=== PATIENT | male | born 1975 | race Caucasian/White ===

== ENCOUNTER 2022-12-20 13:31 | Outpatient (AMB) | payer BC, SELFPAY ==
--- NOTE | 2022-12-20 14:08 | HO.SPINEOV ---
Intake Intake Visit Reasons: MONEY MANAGER consultation Intake Note: Mr. Nunez is here today c/o low back pain. radiating down leg. MRI done @ [facility]/brought disc. Engineer Sergeant Required: No Assessment & Plan Assessment & Plan (1) Lumbar disc herniation with radiculopathy: Code(s): M51.16 - Intervertebral disc disorders with radiculopathy, lumbar region Plan Dear colleague Thank you for referring Alo Nunez to the office today with a chief complaint of right lumbar radiculopathy. HPI: This 47-year-old male developed severe radiating pain down his right leg 2 months ago. He went to the emergency room twice. He took steroids and is still using anti-inflammatory drugs. In addition he tried heat cold pads, chiropractor and home exercises. The pain is not improving. The pain is 8/10. The pain radiates from his buttock down to his posterior thigh to his calf and to the outside of his right foot into the small toe. He had similar episodes in the past but then the pain would stay in his posterior thigh. PMH: Right L4-5 decompression at the age of 20, hypertension, sleep apnea Medications: Lisinopril Allergies: NKDA Social history: . Works in [employer] ill Physical Exam: Pleasant male in obvious agony. Straight leg raise is positive on the right side with radiating pain down his right leg. Ankle reflexes absent on the right side. There is hypoesthesia the lateral part of his right foot. Motor exam is intact. Radiological Studies: MRI done at [facility] shows a small L5-S1 disc herniation compressing the right S1 nerve root an enlargement of the S1 nerve root. Impression/Plan: This patient is suffering from a right S1 radiculopathy due to disc herniation that is not responding to conservative treatments. I therefore him a lumbar microdiskectomy L5-S1, right side. I described procedure and complications and he wants to proceed. He is scheduled for February 12. Thank you for allowing me to participate in your patients care. total time spent was 50 minutes in counseling ,coordination of plan, personal review of imaging, surgical decision making and subsequent plan Michael Rodriguez MD, PhD Sp[facility] Fellowship Trained Neurosurgeon Director, [facility] Coding Level of Care Code New Pt Level 4 (83061) Diagnoses Lumbar disc herniation with radiculopathy M51.16
== END 2022-12-20 14:50 | disposition home or self-care (01) ==
PROVIDERS: PCP Internal Medicine; Visit Provider Neurological Surgery
DX: M51.16 Intervertebral disc disorders with radiculopathy, lumbar region (principal)
CPT/HCPCS: 99204

== ENCOUNTER → 2022-12-20 13:31 | Outpatient (BNVA) | payer BC, SELFPAY | PROVIDERS: PCP Internal Medicine; Visit Provider Neurological Surgery ==

== ENCOUNTER 2023-03-15 07:14 | Day surgery (SDC) | payer BC, SELFPAY ==
[2023-02-28 13:17] VITALS: BMI 29.3
--- NOTE | 2023-03-01 13:34 | P.CONAN_ITS ---
Documented by User: Carmen Melchor NP 03/08/23 15:21 HPI - Anesthesia Eval Consult details Narrative: 47yo M for Right L5-S1 Microlumbar discectomy, 03/15/23 PCP cleared Phone PAT assessment PMFSH Active Problems Active Problems: All Active Problems (Updated 02/28/23 @ 13:17 by Sarah Peraza RN) Lumbar disc herniation with radiculopathy (Acute) Past Medical History Medical History Family history of anesthesia complication Post-operative nausea and vomiting PVCs (premature ventricular contractions) GERD (gastroesophageal reflux disease) Elevated cholesterol Sleep apnea HTN (hypertension) Family History Family history of problems with anesthesia: Yes (Mom - PONV) Surgical History Surgical History History of esophagogastroduodenoscopy (EGD) H/O colonoscopy Hx of decompressive lumbar laminectomy History of Problems with Anesthesia: Yes (PONV) Social History Social History Are you a primary rn progressive care unit to a significant other at home: No Do you presently have visiting nurse or other home services: No Patient Tobacco Use Status: Never used Tobacco Use of substances other than those prescribed or required for medical reasons: No Have you been hit, kicked, punched, or otherwise hurt by someone within the past year? If so, by whom?: No Are you DNR?: No Advance Directives: No Advance Directives Information Provided: Yes Advance Directives on File: No Recently lost weight without trying: No Eating poorly because of decreased appetite: No Nutrition Risks: No Nutritional Risk Poor oral hygiene: No Meds Allergies Allergy/AdvReac Type Severity Reaction Status Date / Time hydrochlorothiazide Allergy Intermediate Dizziness Verified 03/15/23 07:18 Home Medications Medication Instructions Recorded Confirmed Last Taken Type cyclobenzaprine 10 mg tablet 10 mg PO BID PRN Muscle Spasm 02/28/23 02/28/23 Unknown History ibuprofen 800 mg tablet 800 mg PO TID 02/28/23 02/28/23 02/22/23 History lisinopril 5 mg tablet 5 mg PO BEDTIME 02/28/23 02/28/23 Unknown History sildenafil 100 mg tablet 100 mg PO DAILY PRN Erectile 02/28/23 02/28/23 Unknown History Dysfunction Exam Height,Weight and Vital Signs: Height 5 ft 7 in Weight 84.822 kg Pertinent Lab Results Pertinent Lab Results: BMP 02/27/23 WNL except CREAT = 1.27 Narrative Narrative: EKG 02/2023 NSR Probable LAE Assessment and Plan Assessment Anesthesia Assessment: Chart Reviewed Final Anesthetic Review Family History of Problems with Anesthesia: Yes (Mom - PONV) History of Problems with Anesthesia: Yes (PONV) Documented by User: Traci Gomez MD 03/15/23 08:39 PMFSH Active Problems Active Problems: All Active Problems (Updated 03/15/23 @ 07:36 by Traci Gomez MD) Lumbar disc herniation with radiculopathy (Acute) Continuously clearing throat. States throat dry. Denies recent sore throat,cough,cold,fever,malaise Denies recent use of sildenafil H/o PONV, motion sickness- Scop patch in place Past Medical History Medical History Family history of anesthesia complication Post-operative nausea and vomiting PVCs (premature ventricular contractions) GERD (gastroesophageal reflux disease) Elevated cholesterol Sleep apnea HTN (hypertension) Surgical History Surgical History History of esophagogastroduodenoscopy (EGD) H/O colonoscopy Hx of decompressive lumbar laminectomy Social History Social History Are you a primary rn progressive care unit to a significant other at home: No Do you presently have visiting nurse or other home services: No Patient Tobacco Use Status: Never used Tobacco Use of substances other than those prescribed or required for medical reasons: No Have you been hit, kicked, punched, or otherwise hurt by someone within the past year? If so, by whom?: No Are you DNR?: No Advance Directives: No Advance Directives Information Provided: Yes Advance Directives on File: No Recently lost weight without trying: No Eating poorly because of decreased appetite: No Nutrition Risks: No Nutritional Risk Poor oral hygiene: No Meds Allergies Allergy/AdvReac Type Severity Reaction Status Date / Time hydrochlorothiazide Allergy Intermediate Dizziness Verified 03/15/23 07:18 Home Medications Medication Instructions Recorded Confirmed Last Taken Type cyclobenzaprine 10 mg tablet 10 mg PO BID PRN Muscle Spasm 02/28/23 02/28/23 Unknown History ibuprofen 800 mg tablet 800 mg PO TID 02/28/23 02/28/23 02/22/23 History lisinopril 5 mg tablet 5 mg PO BEDTIME 02/28/23 02/28/23 Unknown History sildenafil 100 mg tablet 100 mg PO DAILY PRN Erectile 02/28/23 02/28/23 Unknown History Dysfunction Exam Height,Weight and Vital Signs: Height 5 ft 7 in Weight 84.822 kg Vital Signs Temp Pulse Resp BP Pulse Ox O2 Del Method 03/15/23 08:31 90 151/91 H 03/15/23 08:00 97.9 F 92 18 158/108 H 97 Room Air Airway Mallampati Class: II TM Dist: >3cm Neck ROM: Full (Sometimes with tightness left side of neck. Not today. No UE symptoms) Loose/Missing/Broken Teeth: No (Denies broken, loose, missing teeth) Heart: RRR Lungs: CTAB Assessment and Plan Assessment Anesthesia Assessment: Anesthesia Plan Discussed Final Anesthetic Review NPO: Yes ASA Class: III Final Preanesthetic Review: No Changes in Pt Med Stat, Meds/Allgs Chart Reviewed, Consent Obtained/Reviewed and Anes Risks/Benef Reviewed Patient Risk: Intermediate Procedure Risk: Intermediate Assessment/Block/Sedation in SS: Assess/Block/Sedation-SS Anesthetic Plan Anesthetic Plan: GA Disposition: Standard PACU
[2023-03-15] VITALS (22 sets, daily range): BP systolic 120–158; BP diastolic 72–108; PULSE 71–98; RESP 10–18; TEMP 36.1–36.6; O2SAT 95–98; BMI 28.8
--- NOTE | ~2023-03-15 | FL_ITS ---
EXAMINATION: Intraoperative fluoroscopy CLINICAL INFORMATION: L5/S1 microlumbar discectomy COMPARISON: None. TECHNIQUE: Intraoperative fluoroscopy was provided for use by Dr. Rodriguez. A total of 1 image was saved to PACS. A radiologist was not present during imaging. Today's dictation is only for administrative purposes to document intraoperative fluoroscopic usage. TOTAL FLUOROSCOPIC TIME: 0.0 minutes DAP: 2.83 mGy-cm FL/FL guidance in OR FINDINGS~\^^ Intraoperative fluoroscopy provided for use by Dr. Rodriguez. Please see operative note for detailed findings.
--- NOTE | 2023-03-15 07:04 | MHC.SHP ---
Pre-Procedural Eval Section A Date of Service: 03/15/23 The patient is an INPATIENT: No Changes since office visit: No Cold of Flu in the past 2 weeks, No New Medical Problems, No Changes in Medication and No Patient answered all questions The History & Physical has been completed within 30 days and I have reviewed it.: No Section B Chief Complaint: Intervertebral disc disorders with radiculopathy, Allergies: Allergies Allergy/AdvReac Type Severity Reaction Status Date / Time hydrochlorothiazide Allergy Intermediate Dizziness Verified 02/28/23 11:04 Review of Systems Sugical H&P ROS: Negative: Constitution, Cardiovascular, Respiratory, Neurological, Psychiatric, Hem-Onc, Allergic/Immunologic, Gastrointestinal, Genitourinary, Musculoskeletal, Integumentary, Endocrine and Eyes/Ears/Nose/Throat Exam Surgical H&P Exam: Not Evaluated: HEENT, Not Evaluated: Heart, Not Evaluated: Lungs, Not Evaluated: Extremities, Not Evaluated: Abdomen, Not Evaluated: Skin and Not Evaluated: Neurological Plan Diagnosis/Plan: Unchanged L5-S1 microdiskectomy Time Spent With Patient Time: Total time managing care of this patient today __5__ minutes.
[2023-03-15] MEDS: Lactated Ringers 1,000 ML 100 ML IVCONT (07:20)
[2023-03-15] MEDS: Scopolamine 1.5 MG PATCH.TD.3 TRANSDERMA (07:47)
[2023-03-15] MEDS: methocarbamoL 750 MG TABLET PO (08:39)
[2023-03-15] MEDS: Gabapentin 300 MG CAPSULE PO (08:39)
--- NOTE | 2023-03-15 10:41 | W.PM.OPN ---
Operative Note Operative Note Date of Service: 03/15/23 Narrative: Preoperative diagnosis: S1 radiculopathy due to disc herniation, right side Postoperative diagnosis: Same Procedure: Right L5-S1 lumbar microdiskectomy with microscope Surgeon: Michael Rodriguez MD, PhD Diesel Scoop Operator: marlena Saucedo This 47-year-old male suffering from a right S1 radiculopathy. An MRI of the lumbar spine shows a small disc herniation compressing the S1 nerve root medially. The patient was offered a lumbar microdiskectomy to decompress the nerve root. The procedure complications were explained. The patient was consented. The patient was brought to the operating room and endotracheally intubated. The patient was turned in a prone position on the Samuel frame. Prepping and draping was done followed by time-out. A mid lumbar incision was made followed by release of the paravertebral muscles on the right side to expose the L5-S1 interspace. An intraoperative x-rays obtained to confirm the correct level. The microscope was brought in. A right L5 laminotomy was done followed by opening of the flavum ligament. The S1 nerve root was identified and retracted medially to expose the L5-S1 disc space. I could palpate a small disc herniation medial from the S1 nerve root, which I carefully removed with a pituitary. The disc space was inspected and any residual disc fragments were removed. This resulted in an excellent decompression of the S1 nerve root. Hemostasis was done. The microscope was removed. Marcaine was injected intramuscularly.The incision was closed in two layers. Steri-Strips used to approximate seizure. An op-site were taken there was used to cover the incision. All sponge and needle counts were correct. Patient was extubated and transported in stable condition to recovery room. this procedure was done with the aid of a physician retail assistant manager who performed the initial exposure until the microscope was brought in and performed the closure of the incision. Anesthesia: General Blood loss: 10 mL Complications: None Specimen: None Surgical time: Disposition: Discharge home
--- NOTE | 2023-03-15 10:54 | PM.DS ---
DS: Providers Provider Date of Service: 03/15/23 Date of discharge: 03/15/23 Primary care physician: Alejandro Rose MD Admitting clinician: Michael Rodriguez DS: Diagnosis Discharge Diagnosis (1) Lumbar disc herniation with radiculopathy: Status: Acute DS: Summary Time Attestation Discharge coordination time: Less than 30 minutes Quality: Safe Use of Opioids Does Pt have an Active Cancer Diagnosis on the Problem List?: No Quality: Stroke Does the patient have a stroke diagnosis?: No Physical Exam Vital Signs: Vital Signs: Last Vital Signs Temp 97.9 F 03/15/23 08:00 Pulse 90 03/15/23 08:31 Resp 18 03/15/23 08:00 BP 151/91 H 03/15/23 08:31 Pulse Ox 97 03/15/23 08:00 O2 Del Method Room Air 03/15/23 08:00 BMI result Body Mass Index 28.8 Discharge Plan Discharge Patient Disposition: Home, Self-Care Referrals: Alejandro Rose MD [Primary Care Provider] - 1 Week Discharge Medications: New docusate sodium [Colace] 100 mg capsule 100 mg PO BID Qty: 20 0RF oxycodone 5 mg tablet 5 mg PO Q4H PRN (Reason: pain) Qty: 30 0RF Rx Instructions: Partial Fill upon patient request. Continued cyclobenzaprine 10 mg tablet 10 mg PO BID PRN (Reason: Muscle Spasm) ibuprofen 800 mg tablet 800 mg PO TID lisinopril 5 mg tablet 5 mg PO BEDTIME sildenafil 100 mg Tablet 100 mg PO DAILY PRN (Reason: Erectile Dysfunction) Rx Instructions: administer 30 minutes to 4 hours before activity Discharge Orders: Discharge Order (Routine); Ordered 03/15/23 Ordered By: Yonatan Birch Diet: Advance to usual diet Activity on Discharge: As tolerated Activity Restrictions/Additional Instructions: After your spinal surgery we ask you to observe the following restrictions/guidelines: Activity: It is normal to feel some discomfort as you increase your activity, but that will improve with time. We ask you avoid heavy lifting or acitivities that cause pain. As a general rule, 8lbs is a safe limit for lifting right after surgery. Walk as much as you feel comfortable but not to exhaustion. You will feel extra tired the first few days after surgery. Stay well hydrated. It is OK to walk up and down stairs You may return to driving when you are off narcotics (such as vicodin, oxycodone, dilaudid, etc), and you are back to normal functional capacity. If you have any concerns please check with office before driving. Return to work is specific to each patient and each surgery, so please speak with your doctor/PA at first follow up. Please bring paperwork such as FMLA at that time if you need it filled out. Medications: For optimum pain control, it is best to start with a combination of 500 mg of Tylenol every 4 hours with 600 mg of Motrin every 8 hours, and use narcotics as needed in between for breakthrough pain. We will give you a short supply of narcotics after surgery (usually one weeks worth). If you need more please call the office but do not use more than prescribed. You will need to give our office 48 hours notice if you need narcotics refilled and we do not fill narcotics on weekends or evenings. If you are on a narcotic, it is a good idea to take a stool softener such as colace or senna to avoid constipation If you take blood thinner such as aspirin, Plavix, Coumadin, Effient, Eliquis etc for conditions such as Afib, DVT, Pulmonary embolus, coronary disease, stents etc please speak with your surgeon about specific details as to when you can resume these medications. You can resume NSAIDs on post op day 1 (eg: Motrin, Naproxen, etc). Follow up: Please call the office, , after surgery to arrange a 3 week follow up for wound check. Wound Care: You may remove your dressing on the first day after surgery. ?You may ?leave open to air. Please do not remove the steri strips underneath. they will fall off on their own in one week. IT IS NORMAL FOR THE WOUND TO OOZE OR BE BLOODY FOR A FEW DAYS AFTER SURGERY. ?IF THIS HAPPENS JUST PLACE NEW DRESSING OVER IT TO AVOID STAINING CLOTHES. You may shower on post op day # 1 We ask that you do not let the water soak the wound. If it does get wet, just towel dry lightly. Please do not scrub your incision or place any type of chemical/ointment on the wound. No tub baths, pools or jacuzzis for one month. If you have any leaking or redness from your wound, or fevers, please call office
[2023-03-15] MEDS: oxyCODONE HCl Immed Release 5 MG TABLET PO (12:04)
[2023-03-15] MEDS: fentaNYL citrate/PF 100 MCG/2 ML VIAL 25 MCG IVPUSH (12:05)
== END 2023-03-15 15:27 | disposition home or self-care (01) ==
PROVIDERS: PCP Internal Medicine; Visit Provider Neurological Surgery
PROC: (CPT 63030; principal; 2023-03-15 09:20)
DX: M51.16 Intervertebral disc disorders with radiculopathy, lumbar region (principal); I10 Essential (primary) hypertension; G47.33 Obstructive sleep apnea (adult) (pediatric); Z79.1 Long term (current) use of non-steroidal anti-inflammatories (NSAID); Z99.89 Dependence on other enabling machines and devices; Z79.899 Other long term (current) drug therapy; Z88.8 Allergy status to other drugs, medicaments and biological substances
CPT/HCPCS: 63030; J0131; J0690; J1100; J1885; J2250; J2371; J2405; J2550; J2704; J3010

== ENCOUNTER → 2023-03-15 07:14 | Outpatient (BNV) | payer BC, SELFPAY | PROVIDERS: PCP Internal Medicine; Visit Provider Neurological Surgery | DX: M51.16 Intervertebral disc disorders with radiculopathy, lumbar region (principal) | CPT/HCPCS: 63030; 99499 ==

== ENCOUNTER 2023-04-06 08:58 | Outpatient (AMB) | payer BC, SELFPAY ==
--- NOTE | 2023-04-06 09:00 | A.OFFVIS_ITS ---
Intake Intake Visit Reasons: 1st post-op visit. Intake Note: Pt here for 1st post op Scale Reclamation Tender Required: No Allergies hydrochlorothiazide Allergy (Intermediate, Verified 03/15/23 07:18) Dizziness PFSH Medical History Family history of anesthesia complication Post-operative nausea and vomiting PVCs (premature ventricular contractions) GERD (gastroesophageal reflux disease) Elevated cholesterol Sleep apnea HTN (hypertension) Surgical History History of esophagogastroduodenoscopy (EGD) H/O colonoscopy Hx of decompressive lumbar laminectomy Social History Are you a primary customer care assistant to a significant other at home: No Do you presently have visiting nurse or other home services: No Patient Tobacco Use Status: Never used Tobacco Assessment & Plan Assessment & Plan (1) Lumbar disc herniation with radiculopathy: Code(s): M51.16 - Intervertebral disc disorders with radiculopathy, lumbar region Plan Procedure: L5-S1 right side microdiskectomy Alo comes in today for his 1st postoperative visit. He reports he is satisfied with the surgery and is already beginning to have symptom resolution. He states that he still has some pulling sensation is right-sided posterior calf & lateral right foot, but overall he feels as though his symptoms are slowly improving. He is able to accomplish all of his ADLs around the home, and is reportedly walking 1-2 miles per day. We discussed postoperative healing course, and I encouraged him to continue remaining as active as possible, without engaging in heavy weight-bearing. No sensational deficits. Patient is able to ambulate well, rises from a seated position without difficulty. Incision sites are closed, well healed, with no signs of drainage. We will follow-up with the patient in 6 weeks for his 2nd postoperative visit. Balta Rodriguez MD,PhD [facility] Coding Level of Care Code Global (32328) Diagnoses Lumbar disc herniation with radiculopathy M51.16
== END 2023-04-06 09:23 | disposition home or self-care (01) ==
PROVIDERS: PCP Internal Medicine; Visit Provider Physician Assistant
DX: M51.16 Intervertebral disc disorders with radiculopathy, lumbar region (principal)
CPT/HCPCS: 99024

== ENCOUNTER → 2023-04-06 08:58 | Outpatient (BNVA) | payer BC, SELFPAY | PROVIDERS: PCP Internal Medicine; Visit Provider Physician Assistant ==

== ENCOUNTER 2023-05-18 08:47 | Outpatient (AMB) | payer BC, SELFPAY ==
--- NOTE | 2023-05-18 08:54 | HO.SPINEOV ---
Intake Intake Visit Reasons: 2nd post op Intake Note: Mr. Carson is here today for 2nd post op. Pie Filling Mixer Required: No Allergies hydrochlorothiazide Allergy (Intermediate, Verified 03/15/23 07:18) Dizziness Assessment & Plan Assessment & Plan (1) H/O lumbosacral spine surgery: Code(s): Z98.890 - Other specified postprocedural states Plan Alo is a pleasant 47-year-old male who comes in today for his 2nd postoperative visit after L4-5 microdiskectomy. He continues to heal well, and reports only the occasional twinge in his posterior calf. He states otherwise he has no shooting pains down his right leg and feels much better than he did preoperatively. He was encouraged that he will continue to heal all the way up to 1 year post surgery. His incision site looks good, it is fully healed and flat on the skin. Balta Rodriguez MD,PhD [facility] Coding Level of Care Code Global (82383) Diagnoses H/O lumbosacral spine surgery Z98.890
== END 2023-05-18 09:13 | disposition home or self-care (01) ==
PROVIDERS: PCP Internal Medicine; Visit Provider Physician Assistant
DX: Z98.890 Other specified postprocedural states (principal)
CPT/HCPCS: 99024

== ENCOUNTER → 2023-05-18 08:47 | Outpatient (BNVA) | payer BC, SELFPAY | PROVIDERS: PCP Internal Medicine; Visit Provider Physician Assistant ==